=== PATIENT | male | born 1990 | race Caucasian/White ===

== ENCOUNTER 2024-02-05 10:24 | Emergency (ER) | payer SELFPAY ==
[~2024-02-05] VITALS: Ht 172.7 cm; Wt 61.0 kg
[2024-02-05 10:27] VITALS: O2SAT 97
[2024-02-05] MEDS ORDERED: AMOX1TAB16 MT (10:55)
[2024-02-05] MEDS: KETOROLAC 15MG/ML VIAL IM ONE (10:58)
[2024-02-05 11:00] VITALS: BP 115/70; PULSE 66; RESP 16; TEMP 98.3
== END 2024-02-05 11:33 | disposition home or self-care (01) ==
LOC: ER 10:55
DX: K04.7 Periapical abscess without sinus (principal)
CPT/HCPCS: 99283; 96372; J1885